=== PATIENT | male | born 1995 | race Caucasian/White ===

== ENCOUNTER 2017-09-22 07:41 | Emergency (ER) | payer SELFPAY ==
[2017-09-22 07:52] VITALS: BP 132/67; PULSE 74; RESP 16; TEMP 36.5; O2SAT 98
--- NOTE | 2017-09-22 08:01 | DI.REPORT_ITS ---
SYMPTOM/DIAGNOSIS: PAIN, CRUSH INJURY RIGHT HAND: There is no evidence of a fracture or dislocation. The patient was unable to extend the fifth finger raising the possibility of a possible injury to the extensor tendon. Correlation with the patient's clinical status is recommended.
[2017-09-22] MEDS: Ibuprofen 800 MG TAB PO (08:10)
[2017-09-22] MEDS: Acetaminophen 500 MG TAB 1000 MG PO (08:10)
--- NOTE | 2017-09-22 08:51 | ED.GENADUL_ITS ---
Disposition Clinical Impression: Pain in right finger(s) Disposition: HOME Condition: Good Instructions: RICE Therapy (ED) Additional Instructions: Please take Tylenol, Motrin, and use ice over your fingers. Please maintain the brace. Please follow-up with your new primary care doctor that we are setting up for you. If you notice any worsening of your pain please return immediately. Forms: Work Release Medical Decision Making - Medical Decision Making This is a pleasant 21-year-old male with no past medical history who presents for evaluation of finger pain. The patient's fingers on his right hand, which is his dominant hand were briefly compressed at the distal aspects in a heavy wooden school. Physical exam demonstrates no significant deformity, signs of dislocation, signs of subungual hematoma, or swelling. There is minimal swelling at the distal aspect of the fingertips, nothing severe, no evidence of a sausage digit. The patient does demonstrate good flexion and extension of the fingers at all joint components. Sensation is intact. No pain in the wrist or proximal hand. X-rays do not demonstrate any signs of significant fracture at this time. No evidence of notable deformity. Because of the patient's work he was put in a dorsal finger splint, and his fingers were amauri taped. Patient did have relief with this, as well as the Tylenol and Motrin. Instructed close follow-up with a primary care provider whom we will set up an appointment for. We discussed red flags for which to return the patient understands. Patient's tetanus was updated with a small abrasion on his fingertip. I have extensively reviewed the treatment plan and discharge instructions with the patient. I have addressed all patient concerns at this time. The patient was made aware of what symptoms to monitor for that would warrant a return to the emergency department. Discussed the plan with the patient, they demonstrate verbal understanding and agreement with our assessment and plan at this time. History of Present Illness - General Chief complaint: Orthopedic Stated complaint: RT HAND INJURY Time Seen by Provider: 09/22/17 07:59 - History of Present Illness Initial comments: This is a 21-year-old male with no significant past medical history who takes no medications and has had no surgery who denies IV or illicit drug use who presents for right hand pain. He is right-hand dominant. Patient was at work, when the distal aspects of his third fourth and fifth digits got squished in a heavy wooden school. He was able to get them out immediately. He has some mild pain in these areas. It is worsened with movement. It is improved by nothing. There is no radiation of the pain. He is still able to move his fingers though. Patient denies any numbness or tingling. He denies any other complaints at this time. He denies any wrist elbow or arm pain. - Related Data Unknown [No Known Home Meds] 04/23/16 Hydroxyzine HCl 25 mg PO TID for anxiety #30 tab-cap 02/02/17 Allergies Allergy/AdvReac Type Severity Reaction Status Date / Time No Known Allergies Allergy Unverified 09/22/17 07:58 Review of Systems Other: 10 point review of systems was performed, pertinent positives and negatives are noted in the history of present illness. Past Medical History - Past Medical History Medical history: no medical history - Social History Alcohol use: none Drug use: none General Exam - Other Other exam information: 1.Const: Well-nourished, Well-developed, appearing stated age 2.Eyes: PERRL, no conjunctival injection, and symmetrical lids. 3.ENT: Atraumatic external nose and ears. Moist MM. Neck: Symmetric, trachea midline, No thyromegaly. 4.CVS: +S1/S2, No murmurs or gallops. Peripheral pulses 2+ and equal in all extremities. Brisk capillary refill in all extremities. 5.RESP: Unlabored respiratory effort. Clear to auscultation bilaterally. No wheezes rales or rhonchi 6.GI: Soft, Nontender/Nondistended, No hepatosplenomegaly. No guarding or rebound. 7.MSK: Normocephalic, no significant deformity of the right hand. He small superficial abrasion over the distal aspect of the fourth finger by the nail. Patient is able to flex and extend all digits well. Two-point discrimination is noted. Brisk capillary refill is present. The patient demonstrates good flexion extension strength at the proximal and distal interphalangeal joint as well as the MCP joints. No significant angulation or deformity. No signs of subungual hematoma. No pain at the anatomical snuffbox or any other component of the carpals or metacarpals. 8.Skin: Warm, Dry. No rashes or lesions. 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 Sensation grossly intact, no focal neurologic deficits. 10.Psych: (AAO) x3. Appropriate mood and affect Course Vital Signs - 24 hr 09/22/17 07:52 Temperature 36.5 C Pulse 74 Respiratory 16 Rate Blood Pressure 132/67 Pulse Oximetry 98
--- NOTE | 2017-09-23 11:29 | PDOC.ERCMPRO ---
Care Management Progress Note 09/23-Dr. Estes requested assistance with a PCP (Diana) f/u in 1-2 weeks for a sprained finger. Referral faxed to [facility].
== END 2017-09-22 08:57 | disposition home or self-care (01) ==
PROVIDERS: Emergency Provider Student in an Organized Health Care Education/Training Program; PCP Family Medicine
DX: S67.194A Crushing injury of right ring finger, initial encounter (principal); S60.414A Abrasion of right ring finger, initial encounter; W23.0XXA Caught, crushed, jammed, or pinched between moving objects, initial encounter
CPT/HCPCS: 90471; 99284; 73130; 99283

== ENCOUNTER → 2017-10-05 13:47 | Outpatient (CLI) | payer OTHER, SELFPAY ==
--- NOTE | 2017-10-05 20:33 | ONE_ITS ---
DATE OF SERVICE: October 05, 2017 ASSESSMENT: Crush injury third, fourth, and fifth digits right hand, resolved. PLAN: I am placing him at [facility] today. EMPLOYER: LEONARDO Zaragoza SUBJECTIVE: Mr. Joseph comes in today for evaluation of right hand pain related to crush injury which took plac e on the . He explains that on that day three heavy disks fell from one of the cylinders he was w orking with, crushing the third, fourth, and fifth digits briefly on the right hand. He was evaluate d at the [facility] Emergency Department and x-rays were performed. There were no fractures noted. He say s he did experience pain and swelling for about two days. He wore a splint or did some amauri-taping for that specified time. Gradually his discomfort and swelling resolved. He has been working at [employer] without limitations. REVIEW OF SYSTEMS: Feels very well. He is happy with recent intentional weight loss. He is exercising regularly. No unusual swelling, numbness, tingling, or paresthesias of upper extremities. No chest pain, cough, wheeze, or dyspnea. No abdominal pain, nausea, vomiting, or GI complaints. PAST MEDICAL HISTORY: 1. ADHD for which he takes no medication. 2. Back injury earlier this year which resolved. SOCIAL: Single. HABITS: Does not smoke. Exercises regularly. No substance abuse. Does consume alcohol about 4 times weekly. OBJECTIVE: Alert, pleasant, cooperative, in no acute distress. Exam upper right extremity: There is no erythema, edema, ecchymosis, or warmth in the right upper ex tremity. Hand is completely nontender to palpation over the MCPs and IPs. He has full range of ari on of all digits. Sensory intact. Good capillary refill. Hand grasps are 5/5 bilaterally. Radial pulse is 2+.
== END ==
PROVIDERS: PCP Family Medicine; Visit Provider Nurse Practitioner Family
DX: S67.194A Crushing injury of right ring finger, initial encounter (principal); S60.414A Abrasion of right ring finger, initial encounter; W23.0XXA Caught, crushed, jammed, or pinched between moving objects, initial encounter
CPT/HCPCS: 99213

== ENCOUNTER 2019-02-12 22:07 | Emergency (ER) | payer SELFPAY ==
[2019-02-12 22:10] VITALS: BP 147/75; PULSE 76; RESP 16; TEMP 36.8; O2SAT 100
[2019-02-12 22:14] VITALS: RESP 15
--- NOTE | 2019-02-12 22:38 | DI.RAD_ITS ---
EXAM: XR CHEST 2V PA LATERAL INDICATION: chest pain and SOB. COMPARISON: CHEST 2 VIEWS PA,LAT from 04/23/2016 TECHNIQUE: 2D digital imaging was performed. FINDINGS: Given the technique the lungs appears similar. No acute pulmonary infiltrates are seen. No effusion s or pneumothoraces are present. Heart size and pulmonary vasculature are within normal limits. The bones are intact. IMPRESSION: No acute pulmonary process.
--- NOTE | 2019-02-12 22:46 | ED.GENADUL_ITS ---
Discharge Plan Disposition Patient Disposition: HOME Condition: Good Discharge Details Chief Complaint: Chest Pain Clinical Impression: Chest pain, Atrial enlargement, right Primary Care Provider: Derrick Wong ED Provider: Andi Estes Home Meds and New Rx's Prescriptions: No Action hydroxyzine HCl 25 MG tablet 25 mg PO TID for anxiety Qty: 30 RF: 0 No Known Home Meds RF: 0 Discharge Instructions Instructions: Chest Pain (ED) Additional Instructions: At this time there is no evidence of acute life-threatening abnormality causing ear pain. It may be from something called reflex sympathetic dystrophy which is when the nerve overcompensates and causes pain and scenarios that normally would not cause pain. There could also be components of muscle strain, or viruses that can cause symptoms like this. However at this time. Imaging labs and cardiac evaluation are all normal. You do have a slightly enlarged atria, this does require outpatient follow-up with a repeat echocardiogram. We will help to facilitate follow-up with a new PCP. Please take Tylenol and Motrin as needed for pain. If you notice any worsening of your symptoms, or any new symptoms such as vomiting, diarrhea, fever, chills, shortness of breath, chest pain, numbness, weakness, or fainting , please return immediately to the emergency d epartment for reevaluation. Please follow up with your primary care provider as soon as possible for reassessment and reevaluation. As always, it was a pleasure participating in your medical care today. Referrals: Derrick Wong [Primary Care Provider] - Medical Decision Making This is a 23-year-old male with no significant past medical history except for reflux who presents today for evaluation of chest pain. Symptoms are notably atypical. He states that for the last 12 to 24 hours he has had what he describes as a pulsating sensation in his chest which radiates to his arms, neck, and shoulders. He describes it as a notable achy and painful sensation. He denies any IV or illicit drug use or trauma. He denies any numbness or tingling. He denies having symptoms like this before. No family history of cardiac disease, other abnormalities. No recent trauma. No reproducible component to his pain. Bedside ultrasound demonstrates no evidence of pericardial effusion. Radial pulses are equal, vital signs stable. Differential is broad but includes ACS, reflect sympathetic dystrophy, musculoskeletal strain, less likely dissection. Will further evaluate, treat pain, and reassess. 1:37 AM Laboratory work-up is returned, troponin EKG unremarkable, no white count. Chest x-ray negative but does show questionable bibasilar infiltrates. D-dimer was negative. Will get CTA to evaluate for dissection, and not PE. proBNP normal. Symptoms are still present but slightly improved. Notable atypical component. CTA of the chest demonstrates no evidence of dissection but does demonstrate mild enlargement of the right atrium. I do feel that this is an incidental finding. We will continue to manage the pain, get serial troponins and reassess. 3 AM Repeat troponins and serial EKGs are all unremarkable. CTA unremarkable. Laboratory work-up benign. Patient's pain is notably improved. Unclear as to what the exact etiology is, but there is no clinical evidence of PE, dissection, ACS, Boerhaave's rupture, or other abnormality from both clinical exam, imaging or work-up. He may certainly have an atypical type of reflux and pathetic dystrophy, differential also includes atypical viral etiology causing less likely pericarditis. However with no evidence of effusion on ultrasound or CT, no other abnormalities, I feel there is no evidence of acute life-threatening etiology. At this time I feel that the patient be safely discharged home. We will help to facilitate follow-up with a new adult PCP, as well as recommendations for outpatient echo. Discussed red flags which to return. I have extensively reviewed the treatment plan and discharge instructions with the patient. I have addressed all patient concerns at this time. The patient was made aware of what symptoms to monitor for that would warrant a return to the emergency department. Discussed the plan with the patient, they demonstrate ve rbal understanding and agreement with our assessment and plan at this time. EKG 22: 15 Rate 70, intervals normal, sinus rhythm, no significant ST elevations or depressions, mild J-point in V1 and V2. No evidence of STEMI. No evidence of Brugada, epsilon wave, or delta wave. No electrical alternans. EKG 1: 34 Rate 61, intervals normal, sinus rhythm, no significant ST elevations or depress ions, no evidence of STEMI. Atypical mild artifact in lead III, however no other abnormalities, no evidence of significant dysrhythmia or abnormal QRS complex. No evidence of Brugada, delta wave or epsilon wave. FINDINGS: Lungs: Infiltrate in the right lower lobe and left lower lobe new compared with prior study. Pleural space: Unremarkable. No pleural effusion. No pneumothorax. Heart/Mediastinum: Stable cardiomediastinal silhouette. Bones/joints: Unremarkable for patient's age. IMPRESSION: Bibasilar infiltrates. Thank you for allowing us to participate in the care of your patient. Dictated and Authenticated by: Harper Silva MD 02/12/2019 10:50 PM Eastern Time ([place] & [place]) FINDINGS: Pulmonary arteries: No evidence for pulmonary embolus. Aorta: Unremarkable. No aortic aneurysm. No aortic dissection. Lungs: The lungs are clear. There is no infiltrate on the chest CT as mentioned on the chest x-ray. Pleural space: Unremarkable. No pneumothorax. No pleural effusion. Heart: Relative generous right atrium raises the question of possible cardiac valve disease. Suggest correlation with echocardiogram. Lymph nodes: Unremarkable. No enlarged lymph nodes. Bones/joints: Unremarkable for age. No acute fracture. Soft tissues: Unremarkable. IMPRESSION: 1. No pulmonary embolus. 2. No evidence for pulmonary infiltrate. The lungs are clear 3. Enlarged right atrium. Recommend a echocardiogram for further evaluation. Thank you for allowing us to participate in the care of your patient. Dictated and Authenticated by: Harper Silva MD 02/13/2019 12:17 AM Eastern Time ([place] & [place]) HPI General Date/Time Provider Initiated Documentation: 02/12/19 22:08 . HPI Narrative: Is a 21-year-old male with no significant past medical history except for reflux who presents today for evaluation of chest pain. Patient states that for the last 12 hours he has had a notable atypical chest pain. He describes it as a pulsating sensation that presents in his chest, radiates to his shoulders arms and neck. It is slightly worsened with activity but not relieved with rest. He admits to mild cough, but denies fever or chills. He states that it feels different than his chronic reflux. He denies any positional component. He denies any tearing sensation. No past medical history of dissection aneurysm or family history of cardiac disease. He denies any recent trauma, IV or illicit drugs, or change in medications. He denies any change with sitting upright or l eaning back. No other complaints at this time. No other modifying factors. Related Data Home Medications Medication Instructions Recorded Confirmed Unknown [No Known Home Meds] 04/23/16 09/22/17 hydroxyzine HCl 25 mg PO TID for anxiety #30 02/02/17 tab-cap Previous Rx's Medication Instructions Recorded hydroxyzine HCl 25 mg PO TID for anxiety #30 02/02/17 tab-cap Allergies Allergy/AdvReac Type Severity Reaction Status Date / Time No Known Allergies Allergy Unverified 09/22/17 07:58 General Stated Complaint: Chest Pain MARY: 2 Review of Systems All systems reviewed & are unremarkable except as noted in HPI and below PFSH Social History Smoking/Tobacco Use Status: Never Alcohol Intake: current Alcohol Intake frequency: holidays/special occasions only Drug use: Never Substance use type: does not use Do you feel safe at home: Yes Do you feel safe in your relationship?: Yes Exam Narrative Exam Narrative: 1.Const: Well-nourished, Well-developed, appearing stated age 2.Eyes: PERRL, no conjunctival injection, and symmetrical lids. 3.ENT: Atraumatic external nose and ears. Moist MM. Neck: Symmetric, trachea midline, No thyromegaly. 4.CVS: +S1/S2, No murmurs or gallops. Peripheral pulses 2+ and equal in all extremities. Brisk capillary refill in all extremities. Radial pulses +2 bilaterally. No reproducible chest pain. 5.RESP: Unlabored respiratory effort. Clear to auscultation bilaterally. No wheezes rales or rhonchi 6.GI: Soft, Nontender/Nondistended, No hepatosplenomegaly. No guarding or rebound. 7.MSK: Normocephalic/Atraumatic, Extremities w/o deformity or ttp No cyanosis or clubbing, Normal movement of all extremities 8.Skin: Warm, Dry. No rashes or lesions. 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 Sensation grossly intact, no focal neurologic deficits. 10.Psych: (AAO) x3. Appropriate mood and affect Course Vital Signs Vital signs: Vital Signs Temperature 36.8 C 02/12/19 22:10 Pulse 76 02/12/19 22:10 Respiratory Rate 16 02/12/19 22:10 Blood Pressure 147/75 H 02/12/19 22:10 Pulse Oximetry 100 02/12/19 22:10 Temperature 36.8 C 02/12/19 22:10 Pulse 76 02/12/19 22:10 Respiratory Rate 15 12/29/19 22:14 Respiratory Effort 02/12/19 22:14 Respiratory Depth Normal 02/12/19 22:14 Respiratory Pattern Normal 02/12/19 22:14 Blood Pressure 147/75 H 02/12/19 22:10 Blood Pressure Position Sitting 02/12/19 22:10 Pulse Oximetry 100 02/12/19 22:10 Oxygen Delivery Method Room Air 02/12/19 22:10 Oxygen Flow Rate 0 02/12/19 22:10 Pain Level 6 02/12/19 22:10
[2019-02-12 22:48] LABS: Abs Immature Grans 0.02 k/cumm (0.0-0.09); Absolute Basophil Count 0.06 k/cumm (0.0-0.2); Absolute Eosinophil Count 0.59 k/cumm (0.0-0.7); Absolute Lymphocyte Count 2.56 k/cumm (1.2-3.4); Absolute Monocyte Count 0.77 k/cumm (0.11-0.7); Absolute Neutrophil Count 6.01 k/cumm (1.2-6.7); Basophils % 0.6; Eosinophils % 5.9; HCT 44.5 % (40.0-50.0); HGB 15.4 g/dL (13.5-17.5); Immature Grans % 0.2; Lymphocytes % 25.6; Mean Corp. HGB Concentration 34.6 g/dL (32.0-36.0); Mean Corpuscular Hemoglobin 30.7 pg (27.0-33.0); Mean Corpuscular Volume 88.6 fL (80-95); Monocytes % 7.7; Platelet Count 382 x1000/uL (130-400); RBC 5.02 m/cumm (4.50-6.00); RBC Distribution Width 12.6 % (11.8-14.1); White Blood Cell Count 10.01 k/cumm (4.4-10.8)
--- NOTE | 2019-02-12 22:51 | DI.VRAD_ITS ---
PROCEDURE INFORMATION: Exam: XR Chest, 2 Views Exam date and time: 02/12/2019 10:41 PM Age: 23 years old Clinical indication: Patient HX: Chest pain radiating into arms and neck on both sides TECHNIQUE: Imaging protocol: XR of the chest Views: 2 views. COMPARISON: CR CHEST 2 VIEWS PA,LAT 10/18/2016 07:42 FINDINGS: Lungs: Infiltrate in the right lower lobe and left lower lobe new compared with prior study. Pleural space: Unremarkable. No pleural effusion. No pneumothorax. Heart/Mediastinum: Stable cardiomediastinal silhouette. Bones/joints: Unremarkable for patient's age. IMPRESSION: Bibasilar infiltrates. Dictated and Authenticated by: Harper Silva MD. Ordering:FABRICIO Escamilla MD
[2019-02-12 23:00] LABS: PTT Activated 24.4 sec (21.0-31.4); Prothrombin Time 10.1 sec (9.3-11.0)
[2019-02-12 23:07] LABS: ALT 24 U/L (16-63); AST 17 U/L (15-37); Albumin 3.9 g/dL (3.4-5.0); Alkaline Phosphatase 83 U/L (46-116); BUN 12 mg/dL (7-18); Bilirubin, Total 0.4 mg/dL (0.2-1.0); Calcium 8.9 mg/dL (8.5-10.1); Chloride 106 mmol/L (98-107); Glucose 102 mg/dL (74-106); NT-proBNP 102 pg/mL (<300); Sodium 146 mmol/L (136-145)
[2019-02-12 23:11] LABS: Troponin I < 0.05 ng/Ml (<0.06)
[2019-02-12 23:25] VITALS: BP 143/89; PULSE 81; RESP 17; O2SAT 99
[2019-02-12 23:39] LABS: D-Dimer 165 ng/mlFEU (<500)
[2019-02-12] MEDS: Omnipaque 350 MG/ML 100 ML BTL IJ (23:40)
--- NOTE | 2019-02-12 23:50 | DI.CT_ITS ---
EXAM: CT THORAX CTA CLINICAL HISTORY: chest pain radiating to neck, r/o dissection TECHNIQUE: Imaging Protocol: Axial CT angiography was performed with multi-slice acquisition and mu lti-planar and/or 3D reconstructions. CONTRAST MATERIAL: Intravenous: Omnipaque 350 Contrast volume:100 mL contrast route:IV - Oral:No COMPARISON: XR CHEST 2V PA LATERAL from 02/12/2019 FINDINGS: Pulmonary Arteries: No evidence of filling defect to suggest pulmonary emboli. Tracheobronchial tree: Patent where visualized. Mediastinum and Britney: No dominant adenopathy or fluid collection. Pulmonary parenchyma: No consolidation or dominant measurable mass. No architectural distortion. Pleura: No effusion or pneumothorax. Heart/Aorta: No thoracic aortic aneurysm. No evidence of thoracic aortic dissection. Mild prominenc e of the right atrium. No coronary artery calcifications are seen. No pericardial effusion or eviden ce of right heart strain. Upper abdomen: Unremarkable. Bones: Unremarkable. IMPRESSION: 1. No evidence of pulmonary embolism or thoracic aortic dissection or aneurysm. 2. No acute pulmonary process. 3. Mild prominence of the right atrium. Additional workup is recommended. DATA REPOSITORY: All CT scans at this facility are submitted to the National Radiology Data Registry (NRDR) Dose Index Registry (DIR) with the [employer] (ACR). RADIATION OPTIMIZATION: All CT scans at this facility use at least one of these dose optimization te chniques: automated exposure control; mA and/or kV adjustment per patient size (includes targeted exa ms where dose is matched to clinical indication); or iterative reconstruction.
--- NOTE | 2019-02-13 00:17 | DI.VRAD_ITS ---
PROCEDURE INFORMATION: Exam: CT Angiography Chest With Contrast Exam date and time: 02/12/2019 11:46 PM Age: 23 years old Clinical indication: Patient HX: Chest pain radiating into neck and arms. Pressure in upper chest and neck TECHNIQUE: Imaging protocol: Computed tomographic angiography of the chest with intravenous contrast. 3D rendering: MIP and/or 3D reconstructed images were created by the technologist. Radiation optimization: All CT scans at this facility use at least one of these dose optimization techniques: automated exposure control; mA and/or kV adjustment per patient size (includes targeted exams where dose is matched to clinical indication); or iterative reconstruction. Contrast material: OMNIPAQUE 350; Contrast volume: 100 ml; Contrast route: IV LAC; COMPARISON: CR XR CHEST 2V PA LATERAL 12/02/2019 22:38 FINDINGS: Pulmonary arteries: No evidence for pulmonary embolus. Aorta: Unremarkable. No aortic aneurysm. No aortic dissection. Lungs: The lungs are clear. There is no infiltrate on the chest CT as mentioned on the chest x-ray. Pleural space: Unremarkable. No pneumothorax. No pleural effusion. Heart: Relative generous right atrium raises the question of possible cardiac valve disease. Suggest correlation with echocardiogram. Lymph nodes: Unremarkable. No enlarged lymph nodes. Bones/joints: Unremarkable for age. No acute fracture. Soft tissues: Unremarkable. IMPRESSION: 1. No pulmonary embolus. 2. No evidence for pulmonary infiltrate. The lungs are clear. 3. Enlarged right atrium. Recommend a echocardiogram for further evaluation. Dictated and Authenticated by: Harper Silva MD. Ordering:FABRICIO Escamilla MD
[2019-02-13] MEDS: Lidocaine 5% Patch 1 PATCH TP (01:03)
[2019-02-13] MEDS: Ketorolac 30 MG/ML VIAL IVP (01:04)
--- NOTE | 2019-02-13 01:39 | NUR.NOTE ---
Nursing Note: Troponin and EKG repeated. Pt rates pain 2/10
[2019-02-13 03:09] LABS: Troponin I < 0.05 ng/Ml (<0.06)
[2019-02-13 03:17] VITALS: BP 106/54; PULSE 66; RESP 12; O2SAT 98
[2019-02-13 03:23] VITALS: BP 106/54; PULSE 71; RESP 12; O2SAT 98
--- NOTE | 2019-02-13 06:09 | NUR.NOTE ---
Referral faxed for follow up care with primary care at [facility] primary care Nursing Note:
== END 2019-02-13 03:25 | disposition home or self-care (01) ==
PROVIDERS: Emergency Provider Student in an Organized Health Care Education/Training Program; PCP Family Medicine
DX: R07.89 Other chest pain (principal); R93.1 Abnormal findings on diagnostic imaging of heart and coronary circulation
CPT/HCPCS: 36415; 71275; 80053; 93005; 96374; 96375; 96376; 99285; 71046; 83880; 84484; 85025; 85379; 85610; 85730; 93010; J1885; J3490

== ENCOUNTER 2019-10-16 20:58 | Outpatient (REF) | payer OTHER, SELFPAY ==
[2019-10-18 11:45] LABS: HIV-1/2 Ag & Ab Screen Negative (Negative)
[2019-10-18 12:14] LABS: Hepatitis A Antibody IgM Negative (Negative); Hepatitis B Core Antibody Negative (Negative); Hepatitis B surface Ag Negative (Negative); Hepatitis C Ab w Rflx HCV PCR Negative (Negative)
[2019-10-19 14:18] LABS: Chlamydia Result Negative (Negative); GC Result Negative (Negative)
== END 2019-10-16 21:18 ==
LOC: LBN 20:58
PROVIDERS: PCP Family Medicine; Visit Provider Physician Assistant
DX: Z20.2 Contact with and (suspected) exposure to infections with a predominantly sexual mode of transmission (principal)
CPT/HCPCS: 86704; 86709; 86803; 87340; 87389

== ENCOUNTER 2019-10-17 21:15 | Outpatient (REF) | payer OTHER, SELFPAY | END 2019-10-17 21:35 | LOC: LBN 21:15 | PROVIDERS: PCP Family Medicine; Visit Provider Physician Assistant | DX: Z20.2 Contact with and (suspected) exposure to infections with a predominantly sexual mode of transmission (principal) | CPT/HCPCS: 87491; 87591 ==

== ENCOUNTER 2020-06-16 08:39 | Emergency (ER) | payer OTHER, SELFPAY ==
[2020-06-16] VITALS (45 sets, daily range): BP systolic 110–139; BP diastolic 66–101; PULSE 63–102; RESP 11–29; TEMP 36.6; O2SAT 78–100
--- NOTE | 2020-06-16 08:45 | RT.EKG_ITS ---
APPROVED REPORT Exam: Resting ECG Patient Location: E HR:95 bpm ECG Measurements Heart Rate 95 AXIS MN 131 P 62 QRSd 96 QRS 12 QT 336 T 56 QTc 423 Conclusion Sinus rhythm...normal P axis, V-rate 60- 99 Probable left atrial enlargement...P >50mS, <-0.10mV V1 Borderline ST elevation, anterior leads...ST >0.15mV in V1-V4
--- NOTE | 2020-06-16 08:56 | ED.GENADUL_ITS ---
Discharge Plan Disposition Patient Disposition: HOME Condition: Stable Discharge Details Clinical Impression: Abdominal pain, Chest pain Primary Care Provider: Derrick Wong ED Provider: Augie Lancaster Home Meds and New Rx's Prescriptions: New ondansetron 4 mg tablet,disintegrating 4 mg PO Q8H PRN (Reason: nausea and vomiting) Qty: 30 RF: 0 Discharge Instructions Instructions: Abdominal Pain (ED) Additional Instructions: you should be contacted with an appointment with general surgery take mylanta or tums as needed for stomach discomfort if you feel more ill, have worsening pain or persistent vomit return to the emergency department Stand Alone Forms: Work Release Medical Decision Making 24 yo male who enies chronic medical problems or prior surgeries, comes in with chief complaint of abdomen pain, nausea/vomit and diarrhea with bloody stools since . Also notes upper back and anterior chest pain when he has vomit. He denies fevers, rashes, does use marijuana otherwise denies frequent alcohol use or other drug use. HE arrives stable though does appear in pain and states majority of his current pain is in the mid abdomen, no current chest pain. He has tenderness in the mid abdomen, right lower and left lower. No testicle pain or swelling, denies dysuria or frequency. Symptoms could be from gastroenteritis or colitis but given degree of pain and location of pain concern for possible dissection vs pancreatitis vs sbo. Will obtain ct imaging and also labs and reassess. labs show no significant abnormalities, h/h actually above normal range and mild low K and magnesium. CT unremarkable as well. He feels improved though still has tenderness tht seems localized to the suprapubic region. Awaiting ua results. patient now stating he has nausea, has been drinking water without issues and has mild epigastric tenderness. Could gave gastritis, will give mylanta and reassess, still pending ua patient was having situational difficulty urinating, has no saddle anesthesia, weakness, nor back pain and has normal reflexes so doubt cauda equina and feel it is more stress related patient feels better after mylanta, urine unremarkable. STill has mild epigastric tenderness without guarding, concern for possible gastritis vs ulcer. Will refer to general surgery for evaluation for possible endoscopy. He is stable for discharge and return precautions given Differential Diagnosis Differential Diagnosis: colitis, dissection, pancreatitis Imaging Data Radiologic Study: Attestation: I personally reviewed and interpreted this imaging study as follows: Imaging: CT Scan Radiologist's impression: no acute findings Lab Data Lab results reviewed: Yes I reviewed the patient's lab results. ECG Data Attestation: I personally reviewed and interpreted this ECG (s) as follows: Prior ECG tracings: not available for review Interpretation: sinus rhythm, rate of 95, qtc 423, pr 131 HPI General Mode of arrival: ambulatory . Date/Time Provider Initiated Documentation: 06/16/20 08:43 . Limitations to Documentation: no limitations . Information obtained by: patient . History of Present Illness 24 year old M presents to the emergency department with the chief complaint of abdomen pain, described as moderate, Quality is described as aching and sharp, and is l ocalized to the abdomen. Patient reports radiation to back. Patient started experiencing this day(s) (4) and it has been constant. No relieving factors improve symptom(s), No exacerbating factors reported . Patient notes chest pain. Patient did receive the following treatments prior to arrival, none Related Data Home Medications Medication Instructions Recorded Confirmed ondansetron 4 mg PO Q8H PRN #30 tab 06/16/20 Previous Rx's Medication Instructions Recorded ondansetron 4 mg PO Q8H PRN #30 tab 06/16/20 Allergies Allergy/AdvReac Type Severity Reaction Status Date / Time No Known Allergies Allergy Unverified 06/16/20 08:53 General Stated Complaint: GenMedical MARY: 3 Review of Systems All systems reviewed & are unremarkable except as noted in HPI and below Constitutional Constitutional: Denies chills and Denies fever(s) Cardiovascular Cardiovascular: Denies dyspnea Respiratory Respiratory: Denies cough and Denies dyspnea Genitourinary Genitourinary: Denies dysuria Musculoskeletal Musculoskeletal: Denies joint swelling Integumentary/Breasts Skin/Breast: Denies rash [facility] Social History Smoking/Tobacco Use Status: Never Smoking risk assessment performed?: Yes Alcohol Intake: current Alcohol Intake frequency: holidays/special occasions only Drug use: Daily Substance use type: marijuana Do you feel safe at home: Yes Do you feel safe in your relationship?: Yes Exam Const General: no acute distress Orientation: alert HENNM Head: normal to inspection Ears: external ears normal General nose exam: external nose normal Mouth: moist mucous membranes Eyes General: appearance normal, both eyes and all related structures Neck Neck: normal visual inspection Chest Chest: normal inspection of the chest Resp Effort & Inspection: normal respiratory effort and able to speak in complete sentences Cardio Rate: regular rate GI Palpation: soft, not rigid and tender Skin General skin exam: no rashes or lesions noted Neuro General: patient alert and patient oriented x3 Extrem General: normal to inspection Psych Mental Status: mental status grossly normal Course Vital Signs Vital signs: Vital Signs Temperature 36.6 C 06/16/20 08:45 Pulse 92 H 06/16/20 08:45 Respiratory Rate 24 06/16/20 08:45 Blood Pressure 139/91 H 06/16/20 08:45 Pulse Oximetry 96 06/16/20 08:45 Temperature 36.6 C 06/16/20 08:45 Temperature Source Skin 06/16/20 08:45 Pulse 92 H 06/16/20 08:45 Respiratory Rate 24 06/16/20 08:45 Respiratory Effort Non-Labored 06/16/20 08:45 Blood Pressure 139/91 H 06/16/20 08:45 Blood Pressure Position Supine 06/16/20 08:45 Pulse Oximetry 96 06/16/20 08:45 Oxygen Delivery Method Venti Mask 06/16/20 08:45 Pain Level 6 06/16/20 08:45
--- NOTE | 2020-06-16 09:00 | DI.CT_ITS ---
Exam(s) CT THORAX ABD/PEL CTA EXAM: CT THORAX ABD/PEL CTA CLINICAL HISTORY: chest, back and abdomen pain. TECHNIQUE: Imaging Protocol: Axial CT angiography was performed with multi-slice acquisition and m ulti-planar and/or 3D reconstructions. CONTRAST MATERIAL: Intravenous: Omnipaque 350 Contrast volume:100 mL Oral: No COMPARISON: CT CT THORAX CTA from 02/12/2019 FINDINGS: CHEST: Tracheobronchial tree: Patent where visualized. Pulmonary parenchyma: No consolidation or dominant measurable mass. No architectural distortion. Pulmonary Arteries: No evidence of filling defect to suggest pulmonary emboli. Mediastinum and Britney: No dominant adenopathy or fluid collection. There is soft tissue in the anterio r mediastinum likely reflecting residual thymic tissue. Visualized thyroid: Unremarkable. Pleura: No effusion or pneumothorax. Heart: The heart is not dilated. No coronary artery calcifications are seen. No pericardial effusion. Aorta: Thoracic aorta non-dilated. No evidence of dissection. Soft Tissues: Unremarkable. Bones: Normal. ABDOMEN AND PELVIS: Abdomen: Celiac axis/mesenteric arteries: No evidence of occlusion or significant stenosis. Renal Arteries: No evidence of occlusion or significant stenosis. There is a single artery to the le ft kidney. There are 2 arteries to the right kidney. Aorta: No evidence of occlusion or significant stenosis. No aneurysm or dissection. Pelvis: Iliac Arteries: No evidence of occlusion or significant stenosis. Common Femoral Arteries: No evidence of occlusion or significant stenosis. ABDOMEN: Liver: Normal density. No measurable mass. Portal, Superior Mesenteric, and Splenic Veins: Unremarkable. Gallbladder and Biliary Tract: No radiodense calculus or dilation. Pancreas: Normal density, no abnormal calcifications or inflammatory process. Spleen: Normal. Adrenals: No masses seen. Kidneys: Normal size, contour and axis. No radiodense stones or obstructive uropathy. No masses seen. Bowel: No obstruction or bowel wall thickening. Appendix is unremarkable. Peritoneal Cavity: No ascites, collection or mesenteric inflammatory response. No free air. Lymph Nodes: Within normal limits. Bones: Unremarkable. Soft Tissues: Unremarkable. PELVIS: Bladder: Symmetric distention, no gross wall thickening. Reproductive Organs: Unremarkable as visualized. Lymph Nodes: Within normal limits. Bones: Within normal limits. IMPRESSION: 1. Normal CT Angiogram of the chest, abdomen and pelvis. 2. No evidence of a pulmonary embolus, thoracic aortic dissection or aneurysm. 3. No acute abdominal or pelvic process. RADIATION DOSE DELIVERED: 1,035.35mGy.cm Total DLP DATA REPOSITORY: All CT scans at this facility are submitted to the National Radiology Data Registry (NRDR) Dose Index Registry (DIR) with the [employer] (ACR). RADIATION OPTIMIZATION: All CT scans at this facility use at least one of these dose optimization te chniques: automated exposure control; mA and/or kV adjustment per patient size (includes targeted exa ms where dose is matched to clinical indication); or iterative reconstruction.
[2020-06-16] MEDS: Normal Saline 1,000 ML 1000 ML IV (09:15)
[2020-06-16] MEDS: Ketorolac 15 MG/ML VIAL IVP (09:16)
[2020-06-16] MEDS: Ondansetron 4 MG/2 ML VIAL IVP (09:16)
[2020-06-16 09:23] LABS: Abs Immature Grans 0.03 10^3/uL (0.0-0.06); Absolute Basophil Count 0.05 10^3/uL (0.0-0.2); Absolute Eosinophil Count 0.21 10^3/uL (0.0-0.7); Absolute Lymphocyte Count 1.19 10^3/uL (1.2-3.4); Absolute Monocyte Count 1.23 10^3/uL (0.1-0.8); Absolute Neutrophil Count 5.39 10^3/uL (1.2-6.7); Basophils % 0.6; Eosinophils % 2.6; HCT 52.9 % (40.0-50.0); HGB 18.4 g/dL (13.5-17.5); Immature Grans % 0.4; Lymphocytes % 14.7; MCH 30.2 pg (27.0-33.0); MCHC 34.8 % (32.0-36.0); MCV 86.9 fL (80-95); MPV 8.9 fL (8.0-11.0); Monocytes % 15.2; Neutrophils % 66.5; Nucleated RBC 0 %; Platelet Count 332 10^3/uL (130-400); RBC 6.09 10^6/uL (4.36-5.78); RDW 11.9 % (11.8-14.1); RDW-SD 38.2 fL
[2020-06-16 09:36] LABS: ALT 23 U/L (16-63); AST 37 U/L (15-37); Albumin 3.7 g/dL (3.4-5.0); Alkaline Phosphatase 81 U/L (46-116); Anion Gap 14.2 mmol/L (3-11); BUN 9 mg/dL (7-18); Bilirubin, Direct 0.1 mg/dL (0.0-0.2); Bilirubin, Total 0.5 mg/dL (0.2-1.0); CO2 24.8 mmol/L (21.0-32.0); CREATININE 1.3 mg/dL (0.70-1.30); Calcium 9.3 mg/dL (8.5-10.1); Chloride 101 mmol/L (98-107); Creatine Kinase 31 U/L (39-308); Glucose 116 mg/dL (74-106); Lipase 272 U/L (73-393); Magnesium 1.7 mg/dL (1.8-2.4); Potassium 3.3 mmol/L (3.5-5.1); Sodium 140 mmol/L (136-145); Total Protein 7.7 g/dL (6.4-8.2)
[2020-06-16 09:40] LABS: INR 1.1 (0.9-1.1); Prothrombin Time 11.3 sec (9.3-11.0)
[2020-06-16] MEDS: Omnipaque 350 MG/ML 100 ML BTL IV (09:51)
[2020-06-16] MEDS: Normal Saline - Diluent 50 ML VIAL IV (09:53)
[2020-06-16] MEDS: Normal Saline Flush 10 ML SYR IVP (09:53)
--- NOTE | 2020-06-16 10:31 | DI.VRAD_ITS ---
PROCEDURE INFORMATION: Exam: CTA Chest With Contrast Exam date and time: 06/16/2020 9:54 AM Age: 24 years old Clinical indication: Other: Chest, back and abdomen pain TECHNIQUE: Imaging protocol: Computed tomographic angiography of the chest with contrast. 3D rendering (Not supervised by radiologist): MIP and/or 3D reconstructed images were created by the technologist. Radiation optimization: All CT scans at this facility use at least one of these dose optimization techniques: automated exposure control; mA and/or kV adjustment per patient size (includes targeted exams where dose is matched to clinical indication); or iterative reconstruction. Contrast material: OMNIPAQUE 350; Contrast volume: 100 ml; Contrast route: INTRAVENOUS (IV); Other contrast: chest, back and abdomen pain; COMPARISON: CT THORAX CTA 02/12/2019 11:48 PM FINDINGS: Pulmonary arteries: No evidence of pulmonary embolus to the segmental level. Aorta: No aneurysm of the aorta. No dissection of the aorta. Lungs: Unremarkable. No consolidation. No masses. Pleural spaces: Unremarkable. No pneumothorax. No pleural effusion. Heart: Unremarkable. No cardiomegaly. No pericardial effusion. Lymph nodes: Unremarkable. No enlarged lymph nodes. Bones/joints: Unremarkable. No acute fracture. Soft tissues: Unremarkable. IMPRESSION: 1. No evidence of pulmonary embolus to the segmental level. 2. No aneurysm of the aorta. 3. No dissection of the aorta. PROCEDURE INFORMATION: Exam: CTA Abdomen and Pelvis With Contrast Exam date and time: 06/16/2020 9:54 AM Age: 24 years old Clinical indication: Other: Chest, back and abdomen pain TECHNIQUE: Imaging protocol: Computed tomographic angiography of the abdomen and pelvis with contrast material. 3D rendering (Not supervised by radiologist): MIP and/or 3D reconstructed images were created by the technologist. Radiation optimization: All CT scans at this facility use at least one of these dose optimization techniques: automated exposure control; mA and/or kV adjustment per patient size (includes targeted exams where dose is matched to clinical indication); or iterative reconstruction. Contrast material: OMNIPAQUE 350; Contrast volume: 100 ml; Contrast route: INTRAVENOUS (IV); Other contrast: chest, back and abdomen pain; COMPARISON: CT THORAX CTA 02/12/2019 11:48 PM FINDINGS: Aorta: No aneurysm of the aorta. No dissection of the aorta. Celiac trunk and mesenteric arteries: No occlusion or significant stenosis. Renal arteries: No occlusion or significant stenosis. Right iliac arteries: No occlusion or significant stenosis. Left iliac arteries: No occlusion or significant stenosis. Liver: No mass. Gallbladder and bile ducts: Unremarkable. No calcified stones. No ductal dilation. Pancreas: Unremarkable. No mass. No ductal dilation. Spleen: Unremarkable. No splenomegaly. Adrenal glands: Unremarkable. No mass. Kidneys and ureters: Unremarkable. No solid mass. No hydronephrosis. Stomach and bowel: Unremarkable. No obstruction. No mucosal thickening. Appendix: No evidence of appendicitis. Intraperitoneal space: Unremarkable. No free air. No significant fluid collection. Lymph nodes: Unremarkable. No enlarged lymph nodes. Urinary bladder: Unremarkable. No mass. Reproductive: Unremarkable as visualized. Bones/joints: No acute fracture. No dislocation. Soft tissues: Unremarkable. IMPRESSION: 1. No aneurysm of the aorta. 2. No dissection of the aorta. Dictated and Authenticated by: Ramila Stevens MD. Ordering:AMY Ghosh MD
[2020-06-16] MEDS: Mylanta Suspension 30 ML CUP PO (12:27)
--- NOTE | 2020-06-16 12:48 | NUR.NOTE ---
SPO2 in the area of 1130 are inaccurate as the patient was moving around. Nursing Note:
[2020-06-16 13:21] LABS: Bilirubin Negative (Negative); Blood Trace-intact (Negative); Clarity Clear (Clear); Glucose Negative (Negative); Ketones 40 mg/dL (Negative); Leukocyte Esterase Negative (Negative); Nitrite Negative (Negative); Specific Gravity <= 1.005 (1.005-1.025); Urobilinogen 0.2 EU/dL (Up TO 0.2)
[2020-06-16 13:38] LABS: WBC 0-2 HPF (0-5)
[2020-06-16 13:39] LABS: Bacteria Rare HPF (Negative); C & S Indicated? No; Casts Negative LPF (Negative); Crystals Negative HPF (Negative); Epithelial Cells Negative HPF (Negative); Mucus Trace (Negative); Other Cells Moderate Renal (Negative)
--- NOTE | 2020-06-16 13:55 | NUR.NOTE ---
Nursing Note: Referral [facility] for follow up within one week for abdominal pain. Olamide Bray
== END 2020-06-16 13:55 | disposition home or self-care (01) ==
PROVIDERS: Emergency Provider Emergency Medicine; PCP Family Medicine
DX: R10.13 Epigastric pain (principal)
CPT/HCPCS: 74177; 80053; 82550; 83690; 93005; 96361; 96374; 96375; 99285; 81003; 81015; 82248; 83735; 85025; 85610; 85730; 87086; 93010; 99283; J1885; J2405; J3490

== ENCOUNTER 2020-06-21 10:52 | Outpatient (CLI) | payer OTHER, SELFPAY ==
[2020-06-21 11:17] LABS: Source Nasal/Nares
[2020-06-21 15:38] LABS: COVID-19 PCR Negative (Negative)
== END 2020-06-21 10:53 | disposition home or self-care (01) ==
PROVIDERS: PCP Family Medicine; Visit Provider Surgery
DX: Z20.822 Contact with and (suspected) exposure to COVID-19 (principal); Z01.818 Encounter for other preprocedural examination
CPT/HCPCS: 87635

== ENCOUNTER 2020-06-24 12:15 | Day surgery (SDC) | payer OTHER, SELFPAY ==
--- NOTE | 2020-06-24 06:53 | W.PM.ENDDOP ---
Date of service: 06/24/20 Time of Service: 13:36 Endoscopy Report DATE OF PROCEDURE: 06/24/20 PRE-OP DIAGNOSIS: Abdominal pain, diarrhea, N/V POST-OP DIAGNOSIS: other (Duodenitis, gastritis, gastric ulcer, esophagitis and Hiatal Hernia) PROCEDURE: EGD with biopsies SURGEON: Heidi Ramirez ANESTHESIA TYPE: General:No Airway (ASA 2/ Gisel Bird, JULIAN) ESTIMATED BLOOD LOSS: 5 PATHOLOGY: other (Duodenal bx, antrum bx, gastric ulcer bx, GE junction bx) COMPLICATIONS: None DISPOSITION: same day INDICATIONS: Patient with 2 week history of nausea, vomiting and diarrhea. He was seen in the ER on 06/16, CT scan at that time was unremarkable. The Zofran has improved his symptoms however he continues to not have an appetite and has early satiety. He has lost 3 kg between 06/16 and today 06/21. Encouraged him to continue with bland diet (toast, white rice, banana) and hydration efforts with gatorade. His symptoms and associated weight loss are concerning, DDX Gastritis vs. Ulcer. Discussed the options for further work up includign EGD, given the unremarkable CT scan. -Discussed Upper endoscopy procedure and the need to be NPO after midnight the night prior. Discussed possible complications of the procedure to include bleeding, pain, perforation, missed small lesion/polyp/ulcers, sore throat, aspiration and adverse reaction to the medications or sedation. Questions were answered to patient?s satisfaction. No guarantees were implied or given. FINDINGS: Inflammation of the duodenum, stomach, esophagus Hiatal hernia PROCEDURE DESCRIPTION: After informed consent was obtained the patient was take to the procedure room and placed in a supine position. Monitors were applied and a time out was done. The patients name, date of , procedure type, allergies to medications and metal in their body was reviewed. A bite block was placed and the patient was sedated. Once sedated and comfortable the gastroscope was advanced through the oropharynx which was grossly normal into the esophagus. The proximal and mid-esophagus were normal. In the distal esophagus there was moderate inflammation noted. The scope was advanced into the stomach and through the pylorus into the 3rd portion of the duodenum. The 2nd and 3rd duodenum were noted to be normal. There was inflammation of the 1st portion of the duodenum and biopsies were done. The scope was retracted back into the stomach. There was Moderate inflammation and there was a small shallow ulcer. Biopsies were done of the antrum and ulcer to rule out H. pylori. The scope was retroflexed. The cardia and fundus were noted to be normal. There was a small hiatal hernia noted. The scope was retracted back into the esophagus and biopsies were done of the GE junction to rule out Wyatt's. The Z line was regular. The GE junction was at 35 cm. The scope was removed and the patient was woken up and taken back to [facility] in stable condition. Follow up: 2 weeks in the office. Start Omeprazole and Carafate. Stop Marijuana
--- NOTE | 2020-06-24 06:54 | W.PM.DSUDISC ---
Discharge Plan Disposition Patient Disposition: HOME Condition: Good Discharge Details Reason For Visit: NAUSEA AND VOMITTING Attending Provider: Heidi Ramirez Primary Care Provider: Derrick Wong Home Meds and New Rx's Prescriptions: Continued acetaminophen [Tylenol Extra Strength] 500 mg tablet 1,000 mg PO Q6H PRNRF: 0 sucralfate [Carafate] 1 gram tablet 1 g PO QACHS Qty: 30 RF: 0 ondansetron 4 mg tablet,disintegrating 4 mg PO Q8H PRN (Reason: nausea and vomiting) Qty: 30 RF: 0 omeprazole 40 mg capsule,delayed release(DR/EC) 40 mg PO DAILY Qty: 30 RF: 0 Discharge Instructions Instructions: Hiatal Hernia (DC), Gastritis (DC), Diet for Stomach Ulcers and Gastritis (ED), Esophagitis (DC), Duodenitis (DC) Additional Instructions: Findings: Inflammation of the small bowel, stomach and esophagus Small ulcer in the stomach Hiatal Hernia Follow up: 2 weeks Please call if you develop: fevers >101.5 Nausea or Vomiting Abdominal pain that is not transient Rectal bleeding that is more then a tbsp A hard abdomen and inability to pass gas DAY SURGERY UNIT POST ENDOSCOPY INSTRUCTIONS Instructions for everyone who is given Anesthesia: For your safety, please do the following for the next 24 Hours: a. Do not drive or operate dangerous equipment b. Do not drink alcohol beverages or use any recreational drugs for the first 24 hours or while taking pain medications. The medications in your body may have a reaction that can be dangerous. c. Do not make any important decisions or sign any important papers 1. Generally there are no restrictions on your activity after a day or so has gone by, but you may feel a bit fatigued for a few days. 2. After you arrive home you may have a light meal and return to a normal diet as you can tolerate it without feeling sick to your stomach. 3. After surgery, you may feel pain or discomfort. This should be only transient, but if it persists please contact your doctor. 4. If there are any questions regarding the findings of your procedure, please feel free to contact your doctor. 6. If you are unable to contact your doctor with a problem, contact the hospital at [phone]. 7. Continue all your regular medications unless directed otherwise. I understand the above instructions and have no questions. Signature of Patient or Responsible Adult Escort Date/Time Name of Responsible Adult Escort Signature of Nurse Date/Time Referrals: Heidi Ramirez MD [ [place] STAFF PHYSICIAN] - 07/05/20 11:30 am Activity:: Activity as Tolerated Diet:: low acid Discharge Orders Discharge Orders: Discharge Order (Routine); Ordered 06/24/20 Ordered By: Heidi Ramirez
[2020-06-24 12:15] VITALS: BP 118/74; PULSE 77; RESP 18; TEMP 36.6; O2SAT 96
--- NOTE | 2020-06-24 12:56 | ANES.PREOP_ITS ---
General Info Date of Service Date Performed: 06/24/20 Height: 6 ft 2 in Weight: 91.7 kg Body Mass Index (BMI): 25.9 Surgical Procedure: Operation Date: 06/24/20 12:20 Proposed Procedures Side Surgeon p Gastroscopy Heidi Ramirez MD Meds Allergies and Home Medications Allergies Allergy/AdvReac Type Severity Reaction Status Date / Time No Known Allergies Allergy Unverified 06/24/20 12:30 Home Medication Medication Instructions Recorded acetaminophen 500 mg tablet 1,000 mg PO Q6H PRN tab 06/21/20 omeprazole 40 mg capsule,delayed 40 mg PO DAILY #30 cap 06/21/20 release ondansetron 4 mg disintegrating 4 mg PO Q8H PRN #30 tab 06/21/20 tablet sucralfate 1 gram tablet 1 g PO QACHS #30 tab 06/21/20 Current Visit Medications: Current Medications Generic Name Dose Route Start Last Admin Trade Name Freq PRN Reason Stop Dose Admin Hyoscyamine Sulfate 0.125 mg 06/24/20 06:54 Hyoscyamine 0.125 Mg Sl/Oral/Chew SL DIRECTED PRN Ringer's Solution 1,000 mls @ 80 mls/hr 06/24/20 06:00 IV 07/21/20 23:59 INFUSION BETTIE IV Miscellaneous Supplies 1 each 06/24/20 06:00 Iv Access IV 07/21/20 23:59 DIRECTED BETTIE Ondansetron HCl 4 mg 06/24/20 06:54 Ondansetron 4 Mg/2 Ml Vial IVP Q4H PRN PRN Nausea / Vomiting Sodium Chloride 0 ml 06/24/20 06:00 Normal Saline Flush 10 Ml Syr IV 07/21/20 23:59 PRN PRN Sodium Chloride 0 ml 06/24/20 06:00 Normal Saline 10 Ml Vial IJ 07/21/20 23:59 DIRECTED PRN Sterile Water 0 ml 06/24/20 06:00 Water,Injection,Sterile 10 Ml Vial IJ 07/21/20 23:59 DIRECTED PRN PFSH Active Problems Active Problems: Problem Status Onset Code Depression F32.9 STD exposure Z20.2 Abdominal pain R10.9 Chest pain R07.9 Diarrhea R19.7 Medical History Medical History Hemorrhoid Surgical History Surgical History [place] teeth extracted Tobacco Smoking/Tobacco Use Status: Never Alcohol Alcohol Intake: current Alcohol intake frequency: holidays/special occasions only Substance Use Substance use: Daily Substance use type: marijuana Vital Signs and Lab Results Vital Signs Most Recent Vital Signs in EMR: Most Recent Vital Signs Temp Pulse Resp BP Pulse Ox 36.6 C 77 18 118/74 96 06/24/20 12:15 06/24/20 12:15 06/24/20 12:15 06/24/20 12:15 06/24/20 12:15 Lab Results Blood Type / Crossmatch: No Data to Display Complete Blood Count: White Blood Count 8.10 10^3/uL (4.4-10.8) 06/16/20 09:00 06/16/20 Red Blood Count 6.09 10^6/uL (4.36-5.78) H 06/16/20 09:00 06/16/20 Hemoglobin 18.4 g/dL (13.5-17.5) H 06/16/20 09:00 06/16/20 Hematocrit 52.9 % (40.0-50.0) H 06/16/20 09:00 06/16/20 Platelet Count 332 10^3/uL (130-400) 06/16/20 09:00 06/16/20 Complete Metabolic Panel: Sodium Level 140 mmol/L (136-145) 06/16/20 09:00 06/16/20 Potassium Level 3.3 mmol/L (3.5-5.1) L 06/16/20 09:00 06/16/20 Chloride Level 101 mmol/L (98-107) 06/16/20 09:00 06/16/20 Carbon Dioxide Level 24.8 mmol/L (21.0-32.0) 06/16/20 09:00 06/16/20 Blood Urea Nitrogen 9 mg/dL (7-18) 06/16/20 09:00 06/16/20 Creatinine 1.3 mg/dL (0.70-1.30) 06/16/20 09:00 06/16/20 Magnesium Level 1.7 mg/dL (1.8-2.4) L 06/16/20 09:00 06/16/20 Calcium Level 9.3 mg/dL (8.5-10.1) 06/16/20 09:00 06/16/20 Albumin 3.7 g/dL (3.4-5.0) 06/16/20 09:00 06/16/20 Glucose Level 116 mg/dL (74-106) H 06/16/20 09:00 06/16/20 Liver Function Panel: Alanine Aminotransferase (ALT/SGPT) 23 U/L (16-63) 06/16/20 09:00 06/16/20 Aspartate Amino Transf (AST/SGOT) 37 U/L (15-37) 06/16/20 09:00 06/16/20 Coagulation Panel: INR International Normalized Ratio 1.1 (0.9-1.1) 06/16/20 09:00 06/16/20 Prothrombin Time 11.3 sec (9.3-11.0) H 06/16/20 09:00 06/16/20 Activated Partial Thromboplast Time 27.0 sec (21.0-27.5) 06/16/20 09:00 06/16/20 D-Dimer 165 ng/mlFEU (<500) 02/12/19 22:30 02/12/19 Cardiac Panel: Troponin I < 0.05 ng/Ml (<0.06) 02/13/19 01:30 02/13/19 GX-Auf-K-Type Natriuretic Peptide 102 pg/mL (<300) 02/12/19 22:30 02/12/19 Creatine Kinase 31 U/L (39-308) L 06/16/20 09:00 06/16/20 Arterial Blood Gas: No Data to Display Venous Blood Gas: No Data to Display Pancreas Panel: Lipase 272 U/L (73-393) 06/16/20 09:00 06/16/20 Thyroid Panel: No Data to Display Infectious Disease: Coronavirus (COVID-19)(PCR) Negative (Negative) 06/21/20 11:08 06/21/20 Coronavirus 2019 Source Nasal/nares 06/21/20 11:08 06/21/20 HIV (1&2) Ag and Ab, 4th Generation Negative (Negative) 10/16/19 18:10 10/16/19 Hepatitis B Surface Antigen Negative (Negative) 10/16/19 18:10 10/16/19 Hepatitis C Antibody Negative (Negative) 10/16/19 18:10 10/16/19 Neisseria gonorrhoeae DNA Probe Negative (Negative) 10/17/19 20:58 10/17/19 Blood Cultures: No Data to Display Toxicology Panel: No Data to Display Anesthesia Assessment and Plan Anesthesia History Personal History: No History of Anesthesia Complications Family History: No Family History of Anesthesia Complications Exercise Tolerance Exercise Tolerance: Metabolic Equivalents>4 Pertinent Negatives Pertinent Negatives: No Symptoms of GERD, No Major Cardiovascular Symptoms or Complaints, No Major Pulmonary Symptoms or Complaints (+snores +smoking marijuana) and No History of CVA/TIA Cardiac & Pulmonary Exam Cardiac Exam: Normal S1/S2 Heart Sounds Pulmonary Exam: Clear Bilateral Breath Sounds Airway Exam Known Difficult Airway: No Mallampati Class: 1 Mouth Opening: Normal (> 3cm) Thyromental Distance: Greater than 3 cm Facial Hair: Full [place] Neck Range of Motion: Full ROM Neck Circumference: Normal Teeth Condition: Normal Dentition ASA Classification ASA Score: ASA 2 Emergency Case?: No NPO Status NPO Status: NPO Clears >2 hours, Solids >8 hours Anesthesia Plan Anesthesia Technique: General Anesthesia Airway Planned: Natural Airway Monitors Used: Standard Monitors
[2020-06-24] MEDS: Lactated Ringers 1,000 ML 80 ML IV (12:57)
[2020-06-24 13:00] VITALS: BMI 25.9
--- NOTE | 2020-06-24 13:14 | STOM_PTH ---
PATIENT: Brandon Joseph LOC: [facility] U#:[id number] AGE/SX: 24/M ROOM: RE06/24/[address]: Heidi Ramirez MD : 1995 BED: DIS: 06/24/2020 SPEC #: [id number] RECD: 06/24/20 17:11 STATUS: MAN REQ #: [id number] ESTHELA: 06/24/20 13:[address]: Heidi Ramirez DEPT: Surgical Specimen RECD BY: Rossy Ryan ENTERED: 06/24/20 17:11 SP TYPE: STOMACH OTHR DR: Derrick Wong MD Tissues: 1 - BIOPSY BOWEL 2 - STOMACH BIOPSY 3 - STOMACH BIOPSY 4 - ESOPHAGUS BIOPSY Procedures: GROSS AND MICRO LEVEL 4 Comments: [id number]
[2020-06-24 13:27] VITALS: BP 124/75; PULSE 85; RESP 16; TEMP 36.1; O2SAT 97
--- NOTE | 2020-06-24 13:31 | W.ANESPOSTOP ---
Postoperative Evaluation Date, Time and Location Date Performed: 06/24/20 Time Performed: 13:31 Patient Location: Day Surgery Unit Vital Signs Most Recent Imported Vital Signs: Most Recent Vital Signs Temp Pulse Resp BP Pulse Ox 36.6 C 77 18 118/74 96 06/24/20 12:15 06/24/20 12:15 06/24/20 12:15 06/24/20 12:15 06/24/20 12:15 Most Recent Manually Entered Vital Signs: Adult Blood Pressure: 124/75 Heart Rate: 76 Respirations: 18 Oxygen Saturation (%): 97 Temperature (C): 36.1 C Pain Score (0-10 Scale): 0 Assessment Mental Status: Awake (Alert & Oriented to Patient Baseline) Airway and Respiratory Function: Patent airway with normal (patient baseline) respiratory exam Cardiovascular Function: Hemodynamically Stable Hydration Status: Adequately Hydrated Nausea & Vomiting: No Nausea or Vomiting Pain: Pt. Denies Any Pain Peripheral Nerve Block: Patient did not receive a nerve block
[2020-06-24 13:32] VITALS: BP 124/75; PULSE 76; RESP 18; TEMPC 36.1; O2SAT 97
[2020-06-24 14:05] VITALS: BP 113/73; PULSE 74; RESP 16; TEMP 36.2; O2SAT 98
== END 2020-06-24 14:40 | disposition home or self-care (01) ==
PROVIDERS: PCP Family Medicine; Visit Provider Surgery
PROC: 0DJ68ZZ Inspection of Stomach, Via Natural or Artificial Opening Endoscopic (ICD-10-PCS; CPT 43235; principal; 2020-06-24 12:15)
DX: K29.70 Gastritis, unspecified, without bleeding (principal); K25.9 Gastric ulcer, unspecified as acute or chronic, without hemorrhage or perforation; K26.9 Duodenal ulcer, unspecified as acute or chronic, without hemorrhage or perforation; K29.80 Duodenitis without bleeding; K44.9 Diaphragmatic hernia without obstruction or gangrene; K20.90 Esophagitis, unspecified without bleeding
CPT/HCPCS: 43239; 88305; J2001

== ENCOUNTER 2021-08-26 19:31 | Outpatient (REF) | payer SELFPAY ==
[2021-08-28 10:55] LABS: Syphilis Serology (RPR) Negative (Negative)
== END 2021-08-26 19:32 | disposition home or self-care (01) ==
LOC: LBN 19:31
PROVIDERS: PCP Family Medicine; Visit Provider Physician Assistant
DX: N48.89 Other specified disorders of penis (principal)
CPT/HCPCS: 86592

== ENCOUNTER 2022-05-21 20:56 | Emergency (ER) | payer BC, SELFPAY ==
[2022-05-21 21:02] VITALS: BP 142/70; PULSE 84; RESP 16; TEMP 36; O2SAT 98
[2022-05-21] MEDS: Doxycycline Hyclate 100 MG CAP PO (21:23)
--- NOTE | 2022-05-21 21:42 | ED.GENADUL_ITS ---
Discharge Plan Disposition Patient Disposition: Home Condition: Stable Discharge Details Clinical Impression: STD exposure Primary Care Provider: Cassy Beltrán ED Provider: Petty Tilley Home Meds and New Rx's Prescriptions: New doxycycline hyclate 100 mg capsule 100 mg PO BID Qty: 14 0RF Continued acetaminophen [Tylenol Extra Strength] 500 mg tablet 1,000 mg PO Q6H PRN omeprazole 40 mg capsule,delayed release(DR/EC) 40 mg PO DAILY Qty: 30 0RF Discharge Instructions Instructions: Chlamydia (ED), Sexually Transmitted Diseases (ED), Safe Sex Practices (ED) Additional Instructions: take antibiotic as prescribed even if you feel fine Referrals: Cassy Beltrán MD [Primary Care Provider] - Discharge Data Discharge Date/Time-TO BE ENTERED AT DEPARTURE: 05/21/22 21:52 Medical Decision Making <Petty Tilley NP - Last Filed: 05/22/22 17:15> 26-year-old male with no significant past medical history known STD exposure to chlamydia dirty urine obtained and sent we will treat with doxycycline for 1 week follow-up with his PCP as needed Lab Data Lab results narrative: Urine results pending at discharge <Lizet Maier DO - Last Filed: 05/22/22 22:52> 26-year-old male with no significant past medical history known STD exposure to chlamydia dirty urine obtained and sent we will treat with doxycycline for 1 week follow-up with his PCP as needed Dr. Maier Patient not seen or examined by me but I was available for consult if needed. HPI <Petty Tilley NP - Last Filed: 05/22/22 17:15> General Mode of arrival: ambulatory . Date/Time Provider Initiated Documentation: 05/21/22 21:11 . Limitations to Documentation: no limitations . Information obtained by: patient . HPI Narrative: This is a 26-year-old male patient with no significant past medical history who presents to the emergency department for evaluation after reported exposure to chlamydia. He is asymptomatic. Related Data Home Medications Medication Instructions Recorded Confirmed acetaminophen 500 mg tablet 1,000 mg PO Q6H PRN 06/21/20 08/26/21 (Tylenol Extra Strength) omeprazole 40 mg capsule,delayed 40 mg PO DAILY #30 caps 06/21/20 08/26/21 release doxycycline hyclate 100 mg capsule 100 mg PO BID #14 caps 05/21/22 Previous Rx's Medication Instructions Recorded omeprazole 40 mg capsule,delayed 40 mg PO DAILY #30 caps 06/21/20 release doxycycline hyclate 100 mg capsule 100 mg PO BID #14 caps 05/21/22 Allergies Allergy/AdvReac Type Severity Reaction Status Date / Time No Known Allergies Allergy Unverified 08/26/21 17:21 General Stated Complaint: GenMedical MARY: 4 Review of Systems <Petty Tilley NP - Last Filed: 05/22/22 17:15> All systems reviewed & are unremarkable except as noted in HPI and below PFSH <Petty Tilley NP - Last Filed: 05/22/22 17:15> All Active Problems (Updated 05/21/22 @ 21:42 by Petty Tilley NP) Peptic duodenitis (Acute ~06/2020) Depression (Chronic) STD exposure (Acute) Abdominal pain (Acute) Chest pain (Acute) Diarrhea (Acute) Medical History Hemorrhoid Surgical History History of esophagogastroduodenoscopy (EGD) (~06/2020) [place] teeth extracted Social History Smoking/Tobacco Use Status: Never Smoking risk assessment performed?: Yes Alcohol Intake: current Alcohol Intake frequency: holidays/special occasions only Drug use: Daily Substance use type: marijuana Do you feel safe at home: Yes Do you feel safe in your relationship?: Yes Exam <Petty Tilley NP - Last Filed: 05/22/22 17:15> Narrative Exam Narrative: White male of stated age in no acute distress head is atraumatic oral mucosa is moist cardiovascular pink warm dry well-perfused respirations are even and unlabored skin with no rashes or lesions Course <Petty Tilley NP - Last Filed: 05/22/22 17:15> Vital Signs Vital signs: Vital Signs Temperature 36.0 C L 05/21/22 21:02 Pulse 84 05/21/22 21:02 Respiratory Rate 16 05/21/22 21:02 Blood Pressure 142/70 H 05/21/22 21:02 Pulse Oximetry 98 04/06/23 21:02 Temperature 36.0 C L 05/21/22 21:02 Pulse 84 05/21/22 21:02 Respiratory Rate 16 05/21/22 21:02 Respiratory Effort Normal 05/21/22 21:05 Blood Pressure 142/70 H 05/21/22 21:02 Blood Pressure Position Sitting 05/21/22 21:02 Pulse Oximetry 98 05/21/22 21:02 Oxygen Delivery Method Room Air 05/21/22 21:02 Oxygen Flow Rate 0 05/21/22 21:02 Pain Level 0 05/21/22 21:02
[2022-05-23 12:46] LABS: GC Result Negative (Negative)
[2022-05-23 14:07] LABS: Chlamydia Result Positive (Negative)
--- NOTE | 2022-05-24 13:29 | W.ED.FU ---
Follow Up Plan: pt made aware regarding chlamydia diagnosis and to completed treatment and reassess
== END 2022-05-21 21:52 | disposition home or self-care (01) ==
PROVIDERS: Emergency Provider Nurse Practitioner Acute Care; PCP Family Medicine
DX: A56.8 Sexually transmitted chlamydial infection of other sites (principal); Z20.2 Contact with and (suspected) exposure to infections with a predominantly sexual mode of transmission
CPT/HCPCS: 87491; 87591; 99283; 99284